=== PATIENT | male | born 1985 | race Caucasian/White ===

== ENCOUNTER 2019-02-12 14:40 | Emergency (ER) | payer OTHER, SELFPAY ==
[2019-02-12] MEDS ORDERED: Adacel (T-DAP) 0.5 ML SYRINGE ONE (15:35)
[2019-02-12] MEDS ORDERED: Ketorolac Tromethamine 30 MG/ML VIAL ONE (15:35)
[2019-02-12] MEDS ORDERED: Acetaminophen 325 MG TAB ONE (15:35)
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
== END 2019-02-12 17:55 | disposition home or self-care (01) ==
LOC: ERS 14:40
DX: S52.122A Displaced fracture of head of left radius, initial encounter for closed fracture (principal); S52.132A Displaced fracture of neck of left radius, initial encounter for closed fracture; V29.9XXA Motorcycle rider (driver) (passenger) injured in unspecified traffic accident, initial encounter
CPT/HCPCS: 90471; 90715; 96374; J1885